=== PATIENT | female | born 2000 | race Caucasian/White ===

== ENCOUNTER 2020-06-05 11:20 | Inpatient (IN) ==
--- NOTE | 2020-06-05 12:14 | Emergency Department Note ---
Impression & Plan Depression with suicidal ideation, Contusion of lower leg, right, Self-harming behavior, Self-inflicted laceration of left wrist ED Provider Note Provider: Jeanmarie Huynh MD DATE OF SERVICE:06/05/2020 CHIEF COMPLAINT: Depression, suicidal thoughts, self-harm HISTORY OF PRESENT ILLNESS: Patient is a 18-year-old female history of depression anxiety and distant self-harm presenting here today stating that stating that over the past week or so she is had worsening anxiety and depression. Now with some more prevalent thoughts of suicide but no plan. Patient states she is recently begun self-harm again with some superficial lacerations of her left wrist and some bruising from punching her right lower leg. Denies taking any medications or actually attempting to want to kill herself at this point. Patient states she is difficulty interfacing with her therapist in the outpatient setting. Patient states this may be related to recent diagnosis of cancer in one of her friends at home in [place]. Patient states she has been trying to abstain from alcohol recently as this makes things worse. Denies a history of inpatient psychiatric care. Patient states he is not sleeping well and has lack of energy. REVIEW OF SYSTEMS: A total of 10 review of systems was obtained and negative except as stated above in the HPI. PAST MEDICAL HISTORY: As noted above MEDICATIONS: Reviewed home medications with the patient SOCIAL HISTORY: [employer] student, occasional alcohol, denies illicit drug use PHYSICAL EXAM: GENERAL: alert and oriented in no acute distress on stretcher Head: normocephalic and atraumatic EYES: No injection, discharge or icterus. NECK: Trachea midline. LUNGS: Airway patent. No retractions. Breath sounds clear HEART: Regular rate and rhythm. No chest wall tenderness ABDOMEN: Soft and non-tender, without guarding or rebound. SKIN: Acyanotic, warm, dry EXTREMITIES: Without swelling, tenderness or deformity except for some proud healed scars on the right forearm and wrist and some newer about 1 cm for linear striations of the left wrist superficial nature without active bleeding. No significant rounding erythema. Intact strength of the left hand. Neuro intact in the bilateral hands. Does have some bruising and contusion over the right lateral mid calf without any laceration. No obvious deformity. Soft. NEUROLOGICAL: No focal deficits. No aphasia. No facial droop or slurred speech. Normal strength and tone in the extremities. Sensation to gross touch normal. Psych: States severe depression some anxiety with suicidal thoughts. States she has had some new self-harm but denies any homicidal ideation or hallucinations. Normal affect. Patient's laboratory studies and imaging reviewed. Differential includes Mood disorder, infection, hypoglycemia, electrolyte abnormalities, cardiac sources, intracerebral event, toxicologic, trauma, neurologic, as well as other pathologies. IMPRESSION/MEDICAL DECISION MAKING: Patient presents with anxiety depression now with recurrent self-harm requesting inpatient treatment. Patient has suicidal thoughts but no plan and no furtherance. Basic medical labs were obtained. Very superficial injuries to the left arm not requiring suturing and no evidence of tendon or neurovascular compromise. Some superficial contusions to right lower leg but do not believe he need x-rays or additional imaging here. Basic labs were without significant abnormality here. Rapid Covid testing was sent and a screening to facilitate mental health placement. This was negative. Seen in conjunction with ps ychiatric showcase [facility]. Patient requesting inpatient treatment and I believe this is reasonable given her worsening depression and now with recurrence of self-harm given escalation. Bed search initiated and patient was accepted 3 S. for further inpatient treatment of her depression with suicidal ideation. DIAGNOSIS: Depression with suicidal ideation, right leg bruising, left arm superficial lac eration secondary to intentional self-harm DISPOSITION: Admitted to 3 S. Past Med/Surg History Medical History (Updated 06/05/20 @ 16:35 by Jeanmarie Huynh M.D.) Anxiety Asthma stable Depression Dysmenorrhea History of anemia Inappropriate sinus tachycardia occasional palpitations/being monitored by cardiology Menorrhagia Pelvic cramping Surgical History S/P tonsillectomy S/P wisdom tooth extraction Family History Grandmother (Maternal) Family history of diabetes mellitus Grandfather (Maternal) Family history of diabetes mellitus Other No pertinent family history Social History Smoking Status: Never smoker Second Hand Exposure: Yes (as a child); Hx Alcohol Use: Yes Alcohol type: beer, wine and hard liquor Hx Substance Use: No Preferred Language: Greenlandic Communication Ability: Effective 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 Beliefs That Will Affect Care: None Current Living Situation: Other Current Living Situation Comment: roommate Feels Safe at Home: Yes Assistive Devices: Glasses Allergies Allergies Allergy/AdvReac Type Severity Reaction Status Date / Time latex Allergy Mild Rash Verified 06/05/20 12:12 No Known Drug Allergies Allergy Unknown Verified 06/05/20 12:12 Home Meds Home Medications Medication Instructions Recorded Confirmed cetirizine 10 mg PO DAILY 06/05/20 06/05/20 norethindrone (contraceptive) 0.35 mg PO DAILY 06/05/20 06/05/20 rizatriptan 10 mg PO Q2H PRN 06/05/20 06/05/20 topiramate 25 mg PO BID 06/05/20 06/05/20 venlafaxine 75 mg PO QAM 06/05/20 06/05/20 Results & Data (ED) Vital Signs Vital Signs - 24 hr 06/05/20 11:35 06/05/20 13:19 Temperature 36.9 C Temperature Source Oral Pulse Rate 108 H Pulse Rate [Right Finger] 96 H Pulse Rhythm Regular Pulse Rhythm [Right Finger] Regular Pulse Strength Normal Pulse Strength [Right Finger] Normal Respiratory Rate 16 20 Respiratory Effort / Characteristics Non-Labored Spontaneous Non-Labored Spontaneous Respiratory Depth Normal Normal Respiratory Pattern Regular Regular Blood Pressure 149/111 H Blood Pressure [Left Arm] 127/96 Blood Pressure Mean 123 Blood Pressure Mean [Left Arm] 106 Blood Pressure Position Sitting Pulse Oximetry 98 99 Oxygen Delivery Method Room Air Room Air Sepsis Recent Fever Within 48 Hours No Sepsis New/Unexplained Change in Mental Status N/A Sepsis Action Taken by Nursing No Action Required Laboratory Data Result diagrams: 06/05/20 13:23 06/05/20 13:22 Lab Results 06/05/20 06/05/20 06/05/20 Range/Units 11:36 11:36 11:36 WBC (4.8-10.8) K/uL RBC (4.2-5.4) M/uL Hgb (12.0-16.0) g/dL Hct (37-47) % MCV (80-100) fL MCH (25-34) pg MCHC (32-36) g/dL RDW Std Deviation (36.4-46.3) fL RDW Coeff of Rae (11.5-14.5) % Plt Count (130-400) K/uL MPV (7.4-10.4) fL Immature Gran % (Auto) % Neut % (Auto) % Lymph % (Auto) % [place] % (Auto) % Eos % (Auto) % Baso % (Auto) % Neut # (Auto) (1.4-6.5) K/uL Lymph # (Auto) (1.2-3.4) K/uL [place] # (Auto) (0.11-0.59) K/uL Eos # (Auto) (0-0.5) K/uL Baso # (Auto) (0-0.2) K/uL Immature Gran # (Auto) (0.00-0.02) K/uL Platelet Estimate (Normal) Sodium (136-145) mmol/L Potassium (3.5-5.1) mmol/L Chloride (98-107) mmol/L Carbon Dioxide (21-32) mmol/L Anion Gap (3-11) BUN (7-18) mg/dl Creatinine (0.6-1.2) mg/dl Est Cr Clr Drug Dosing ml/min Est GFR ( Amer) Est GFR (Non-Af Amer) BUN/Creatinine Ratio (10-20) Glucose (70-99) mg/dl Calcium (8.5-10.1) mg/dl Total Bilirubin (0.2-1) mg/dl AST (15-37) U/L ALT (12-78) U/L Alkaline Phosphatase (45-117) U/L Total Protein (6.4-8.2) gm/dl Albumin (3.4-5.0) gm/dl Globulin (2.5-4.0) gm/dl Albumin/Globulin Ratio (0.9-2) TSH (0.300-4.500) uIu/ml Urine Color Dark Yellow Urine Appearance Clear (Clear) Urine pH >= 9.0 H (4.5-7.5) Ur Specific [place] 1.027 (1.000-1.030) Urine Protein Negative (Negative) Urine Glucose (UA) Negative (Negative) Urine Ketones Trace H (Negative) Urine Blood Negative (Negative) Urine Nitrite Negative (Negative) Urine Bilirubin Negative (Negative) Urine Urobilinogen Negative (Negative) Ur Leukocyte Esterase Negative (Negative) POC Ur Test NEG (NEG) Salicylates (2.8-20) mg/dl Urine Opiates Screen Neg (Neg) Ur Methadone, Qual Neg (Neg) Acetaminophen (10-30) ug/ml Urine Barbiturates Neg (Neg) Ur Phencyclidine (PCP) Neg (Neg) U Amphetamin/Meth Scrn Neg (Neg) MDMA (Ecstasy) Screen Neg (Neg) U Benzodiazepines Scrn Neg (Neg) Ur Cocaine Metabolite Neg (Neg) U Marijuana (THC) Screen Neg (Neg) Ethyl Alcohol mg/dL (0-3) mg/dl COVID-19 Eval Order SARS-CoV-2, RNA, NAAT (NEGATIVE) 06/05/20 06/05/20 06/05/20 Range/Units 13:22 13:22 13:22 WBC (4.8-10.8) K/uL RBC (4.2-5.4) M/uL Hgb (12.0-16.0) g/dL Hct (37-47) % MCV (80-100) fL MCH (25-34) pg MCHC (32-36) g/dL RDW Std Deviation (36.4-46.3) fL RDW Coeff of Rae (11.5-14.5) % Plt Count (130-400) K/uL MPV (7.4-10.4) fL Immature Gran % (Auto) % Neut % (Auto) % Lymph % (Auto) % [place] % (Auto) % Eos % (Auto) % Baso % (Auto) % Neut # (Auto) (1.4-6.5) K/uL Lymph # (Auto) (1.2-3.4) K/uL [place] # (Auto) (0.11-0.59) K/uL Eos # (Auto) (0-0.5) K/uL Baso # (Auto) (0-0.2) K/uL Immature Gran # (Auto) (0.00-0.02) K/uL Platelet Estimate (Normal) Sodium 137 (136-145) mmol/L Potassium 3.8 (3.5-5.1) mmol/L Chloride 108 H (98-107) mmol/L Carbon Dioxide 24 (21-32) mmol/L Anion Gap 5.0 (3-11) BUN 10 (7-18) mg/dl Creatinine 0.91 (0.6-1.2) mg/dl Est Cr Clr Drug Dosing 92.5 ml/min Est GFR ( Amer) 104.5 Est GFR (Non-Af Amer) 90.2 BUN/Creatinine Ratio 10.6 (10-20) Glucose 79 (70-99) mg/dl Calcium 9.3 (8.5-10.1) mg/dl Total Bilirubin 0.7 (0.2-1) mg/dl AST 21 (15-37) U/L ALT 43 (12-78) U/L Alkaline Phosphatase 74 (45-117) U/L Total Protein 7.8 (6.4-8.2) gm/dl Albumin 3.9 (3.4-5.0) gm/dl Globulin 3.9 (2.5-4.0) gm/dl Albumin/Globulin Ratio 1.0 (0.9-2) TSH 0.917 (0.300-4.500) uIu/ml Urine Color Urine Appearance (Clear) Urine pH (4.5-7.5) Ur Specific [place] (1.000-1.030) Urine Protein (Negative) Urine Glucose (UA) (Negative) Urine Ketones (Negative) Urine Blood (Negative) Urine Nitrite (Negative) Urine Bilirubin (Negative) Urine Urobilinogen (Negative) Ur Leukocyte Esterase (Negative) POC Ur Test (NEG) Salicylates < 1.7 L (2.8-20) mg/dl Urine Opiates Screen (Neg) Ur Methadone, Qual (Neg) Acetaminophen < 2 L (10-30) ug/ml Urine Barbiturates (Neg) Ur Phencyclidine (PCP) (Neg) U Amphetamin/Meth Scrn (Neg) MDMA (Ecstasy) Screen (Neg) U Benzodiazepines Scrn (Neg) Ur Cocaine Metabolite (Neg) U Marijuana (THC) Screen (Neg) Ethyl Alcohol mg/dL < 3.0 (0-3) mg/dl COVID-19 Eval Order SARS-CoV-2, RNA, NAAT (NEGATIVE) 06/05/20 06/05/20 06/05/20 Range/Units 13:23 15:58 15:58 WBC 7.16 (4.8-10.8) K/uL RBC 4.60 (4.2-5.4) M/uL Hgb 15.0 (12.0-16.0) g/dL Hct 43.4 (37-47) % MCV 94.3 (80-100) fL MCH 32.6 (25-34) pg MCHC 34.6 (32-36) g/dL RDW Std Deviation 42.0 (36.4-46.3) fL RDW Coeff of Rae 12.2 (11.5-14.5) % Plt Count 236 (130-400) K/uL MPV 9.6 (7.4-10.4) fL Immature Gran % (Auto) 0.3 % Neut % (Auto) 66.5 % Lymph % (Auto) 22.5 % [place] % (Auto) 6.6 % Eos % (Auto) 3.8 % Baso % (Auto) 0.3 % Neut # (Auto) 4.77 (1.4-6.5) K/uL Lymph # (Auto) 1.61 (1.2-3.4) K/uL [place] # (Auto) 0.47 (0.11-0.59) K/uL Eos # (Auto) 0.27 (0-0.5) K/uL Baso # (Auto) 0.02 (0-0.2) K/uL Immature Gran # (Auto) 0.02 (0.00-0.02) K/uL Platelet Estimate Normal (Normal) Sodium (136-145) mmol/L Potassium (3.5-5.1) mmol/L Chloride (98-107) mmol/L Carbon Dioxide (21-32) mmol/L Anion Gap (3-11) BUN (7-18) mg/dl Creatinine (0.6-1.2) mg/dl Est Cr Clr Drug Dosing ml/min Est GFR ( Amer) Est GFR (Non-Af Amer) BUN/Creatinine Ratio (10-20) Glucose (70-99) mg/dl Calcium (8.5-10.1) mg/dl Total Bilirubin (0.2-1) mg/dl AST (15-37) U/L ALT (12-78) U/L Alkaline Phosphatase (45-117) U/L Total Protein (6.4-8.2) gm/dl Albumin (3.4-5.0) gm/dl Globulin (2.5-4.0) gm/dl Albumin/Globulin Ratio (0.9-2) TSH (0.300-4.500) uIu/ml Urine Color Urine Appearance (Clear) Urine pH (4.5-7.5) Ur Specific [place] (1.000-1.030) Urine Protein (Negative) Urine Glucose (UA) (Negative) Urine Ketones (Negative) Urine Blood (Negative) Urine Nitrite (Negative) Urine Bilirubin (Negative) Urine Urobilinogen (Negative) Ur Leukocyte Esterase (Negative) POC Ur Test (NEG) Salicylates (2.8-20) mg/dl Urine Opiates Screen (Neg) Ur Methadone, Qual (Neg) Acetaminophen (10-30) ug/ml Urine Barbiturates (Neg) Ur Phencyclidine (PCP) (Neg) U Amphetamin/Meth Scrn (Neg) MDMA (Ecstasy) Screen (Neg) U Benzodiazepines Scrn (Neg) Ur Cocaine Metabolite (Neg) U Marijuana (THC) Screen (Neg) Ethyl Alcohol mg/dL (0-3) mg/dl COVID-19 Eval [facility] SARS-[facility]-2, RNA, NAAT NEGATIVE (NEGATIVE) Discharge Plan Visit Data Chief Complaint: Mental Health Evaluation Stated Complaint: MENTAL HEALTH EVALUTION ED Provider: Jeanmarie Huynh Discharge Problem: Depression with suicidal ideation, Contusion of lower leg, right, Self-harming behavior, Self-inflicted laceration of left wrist Patient Disposition: Transfer Behavioral Health Fac Forms Stand Alone Forms: My [facility], Suicide Prevention Resources Prescriptions Prescriptions: No Action venlafaxine 75 mg Capsule,Extended Release 24hr 75 mg PO QAM RF: 0 cetirizine 10 mg Tablet 10 mg PO DAILY RF: 0 topiramate 25 mg tablet 25 mg PO BID RF: 0 rizatriptan 10 mg tablet,disintegrating 10 mg PO Q2H PRN (Reason: Migraine Headache) RF: 0 norethindrone (contraceptive) 0.35 mg Tablet 0.35 mg PO DAILY RF: 0 Referrals Referrals: [facility] [Primary Care Provider] - Discharge Problem: Contusion of lower leg, right Qualifiers: Encounter type: initial encounter Qualified Code(s): S80.11XA - Contusion of right lower leg, initial encounter
[2020-06-05 12:33] LABS: Appearance Urine Clear (Clear); Bilirubin Urine Negative (Negative); Blood Urine Negative (Negative); Color Urine Dark Yellow; Glucose Urine UA Negative (Negative); Ketones Urine Trace (Negative); Leukocyte Esterase Urine Negative (Negative); Nitrite Urine Negative (Negative); Protein Urine Negative (Negative); Specific Gravity Urine 1.027 (1.000-1.030); Urobilinogen Urine Negative (Negative); pH Urine >= 9.0 (4.5-7.5)
[2020-06-05 13:27] LABS: Amphetamines+Metham, Urine Neg (Neg); Barbiturates, Urine Neg (Neg); Benzodiazepine, Urine Neg (Neg); Cocaine, Urine Neg (Neg); MDMA (Ecstacy), Urine Neg (Neg); Methadone, Urine Neg (Neg); Opiate, Urine Neg (Neg); Phencyclidine, Urine Neg (Neg)
[2020-06-05 13:37] VITALS: O2SAT 99
[2020-06-05 13:51] LABS: Albumin Level 3.9 gm/dl (3.4-5.0); BUN Creatinine Ratio 10.6 (10-20); Calcium 9.3 mg/dl (8.5-10.1); Creatinine Clr Calc Pharmacy 92.5 ml/min; Est GFR (African American) 104.5; Est GFR (Non-African American) 90.2; Potassium 3.8 mmol/L (3.5-5.1)
[2020-06-05 14:01] LABS: Bilirubin,Total 0.7 mg/dl (0.2-1); Globulin 3.9 gm/dl (2.5-4.0); Thyroid Stimulating Hormone 0.917 uIu/ml (0.300-4.500); Total Protein 7.8 gm/dl (6.4-8.2)
[2020-06-05 14:12] LABS: Basophils # (auto) 0.02 K/uL (0-0.2); Basophils % (auto) 0.3 %; Eosinophils # (auto) 0.27 K/uL (0-0.5); Eosinophils % (auto) 3.8 %; Hematocrit (blood only) 43.4 % (37-47); Immature Granulocytes # (auto) 0.02 K/uL (0.00-0.02); Immature Granulocytes % (auto) 0.3 %; Lymphocytes # (auto) 1.61 K/uL (1.2-3.4); Lymphocytes % (auto) 22.5 %; Mean Corpuscular Hemoglobin 32.6 pg (25-34); Mean Corpuscular Hgb Conc 34.6 g/dL (32-36); Mean Corpuscular Volume 94.3 fL (80-100); Mean Platelet Volume 9.6 fL (7.4-10.4); Monocytes # (auto) 0.47 K/uL (0.11-0.59); Monocytes % (auto) 6.6 %; Neutrophils # (auto) 4.77 K/uL (1.4-6.5); Neutrophils % (auto) 66.5 %; Platelet Count 236 K/uL (130-400); Platelet Estimate Normal (Normal); RDW Coefficient of Variation 12.2 % (11.5-14.5); White Blood Count 7.16 K/uL (4.8-10.8)
[2020-06-05 14:13] LABS: Acetaminophen < 2 ug/ml (10-30); Salicylate < 1.7 mg/dl (2.8-20)
[2020-06-05] MEDS ORDERED: ALUMINUM/MAGNESIUM SUSP 30 ML UDC PO PRN (16:26)
[2020-06-05] MEDS ORDERED: hydrOXYzine HCl 25 MG TAB PO PRN (16:26)
[2020-06-05] MEDS ORDERED: MAGNESIUM HYDROXIDE SUSP 30 ML UDC PO PRN (16:26)
[2020-06-05] MEDS ORDERED: SODIUM CHLORIDE 0.65% NA SOLN 45 ML (OCEAN) PRN (16:26)
[2020-06-05] MEDS ORDERED: BISMUTH SUBSALICYLATE LIQD 236 ML PO PRN (16:26)
[2020-06-05] MEDS ORDERED: RIZATRIPTAN BENZOATE 10 MG TAB PO PRN (16:31)
[2020-06-05] MEDS: TOPIRAMATE 25 MG TAB PO SCH (21:03)
[2020-06-05] MEDS: ACETAMINOPHEN 325 MG TAB PO PRN (21:03)
[2020-06-05] MEDS: hydrOXYzine HCl 25 MG TAB PO PRN (22:02)
[2020-06-06] MEDS: CETIRIZINE HCL 10 MG TABLET PO SCH (08:49)
[2020-06-06] MEDS: VENLAFAXINE HCL XR 75 MG CAPXR PO SCH (08:49)
[2020-06-06] MEDS: PATIENT'S OWN ORAL CONTRACEPTIVE PO SCH (08:50)
[2020-06-06] MEDS: TOPIRAMATE 25 MG TAB PO SCH ×2 (08:50→20:55)
[2020-06-06] MEDS ORDERED: NORETHINDRONE 5 MG TAB PO SCH (09:00)
[2020-06-06] MEDS: ACETAMINOPHEN 325 MG TAB PO PRN ×2 (09:18→15:41)
--- NOTE | 2020-06-06 10:55 | History & Physical ---
Date of Service June 06, 2020 Impression / Recommendations Impression 19 y/o F [employer] student from [place] with long standing depression, anxiety, and cluster B traits vs hypomanic symptoms who presents with increased mood lability and feeling out of control with her emotions, with self injury by cutting and suicidal thoughts. She has been on venlafaxine XR off and on for the past 1.5 years, most recently resumed about 6 months ago, and just increased to 75mg daily about 2 weeks ago. She recently started therapy, and will need a family meeting/exploration of supports and referral for psychiatry. Inpatient treatment is medically necessary due to severity of symptoms and risk for self harm if discharged. (1) Depression: 06/06 - Differential includes MDD, bipolar II (although per her report periods of elevated mood do not last long enough to qualify as hypomanic episodes), and borderline PD. Reviewed these with patient, discussed need to get collateral information to help clarify diagnosis, and plan to treat based on targeting problematic symptoms in the meantime. -Discussed option of titrating venlafaxine XR further and/or addition of a mood stabilizer. Specifically discussed lamotrigine, given favorable side effect profile when compared to lithium or an atypical antipsychotic, and reviewed risks, benefits, and side effects, including SJS and need to follow standard dose titration schedule to minimize this risk. Provided her with an UpToDate handout about the medication and she would like to read it and think about it, will continue to provide education as needed. -Encourage group attendance and participation, work on healthy coping skills and discharge safety plan. -Family meeting with ? or roommate, vs other family. -Coordinate with outpatient therapist, and refer for psychiatric care. Depression Type: unspecified Qualified Code(s): F32.9 - Major depressive disorder, single episode, unspecified Present on Admission?: Yes (2) Cluster B personality disorder: 06/06 - Chronic SI, SIB by cutting, and chronic mood instability with marked reactivity of mood. Continue to explore, provide psychoeducation Present on Admission?: Yes Risk Factors Assessment Male: No : Yes Do You Have Access To A Gun?: No Health Problems: Yes Mental Health Diagnoses: Yes Substance Use Disorders: No Previous Attempt: Yes Previous Attempt; Didn't Tell Anyone: Yes Family History of Suicide: Yes Previous Psychiatric Hospitalization: No Hopelessness: No Smoker: No Protective Factors Assessment : Yes Responsible for Young Children: No Employed: Yes ([employer]/t) Stable Relationships: Yes Supportive Family: No Psychiatric History Identifying Data TEENA MURPHY is a 19-year-old F [employer] student, has a history of depression, and was admitted on 06/05/20 16:26 on a 201 voluntary commitment for suicidal ideation and inability to contract for safety outside the hospital. Chief Complaint "Just out of control". History of Present Illness Patient presented to the ER reporting worsening depression and a wish to be . She was unable to contract for safety outside the hospital. Admission labs were normal, and she signed in voluntarily for hospitalization. On my assessment, patient reports she has been feeling increasingly out of control, overwhelmed, with intense emotions. She had been diagnosed with depression in high school, but didn't take medication as "my mom doesn't really believe in it," and did not get treatment until her freshman year of college, when she started escitalopram, then sertraline the following year, and venlafaxine XR was started about a year and a half ago, although she went off it for about 6 months as she didn't have insurance, and resumed it 6-7 months ago, and her dose was increased about 2 months ago, initially seemed to help, but then stopped. She has never been on higher doses. She reports mood is "down, depressed, hopeless, tired all the time, can't think well, thoughts aren't in a line, can't do my schoolwork" for > 1 month. She is "able to be happy, but don't really feel it to my core." Sleep is disrupted, can't sleep at night but then naps "all day." Appetite is poor but has gained weight. Reports SI and "I'd be better off ." Reports multiple stressors including that her moved cross country () at the beginning of the month, and her best friend was diagnosed with cancer. She reports periods of elevated mood lasting a couple hours to a couple of days, where she feels "really good about myself, want to change and be a better person," makes a lot of lists of things she wants to do, but doesn't follow through. Endorses rapid and excessive speech. Denies increase in pleasure seeking behavior or decreased need for sleep, states she is "always tired." She also reports anxiety with worry, rumination, feeling on edge, and reports these are life long symptoms. Started cutting age 13, had not cut for a year until a couple of weeks ago, and then cut twice. Does it when feels out of control, as gives her a sense of control. Uses a pocket knife or razor to cut, usually on thighs, but now on arms. Thinks triggered by going home a couple of weeks ago, and sister was self harming, "I found harm." Denies recent panic attacks, but has had them in the past. Denies psychosis, OCD, PTSD, eating disorder. States her therapist told her she had ADHD based on a "quiz" she took, but she feels depressive symptoms are the main issue. Eduarda by avoidance. Past Psychiatric History Previous Psych History: Therapy in for about 6 months, didn't like therapist. Thinks she was in therapy in elementary school when her father , but poor recall. Current Psychiatric Diagnosis: Depression and Anxiety Outpatient Services: Dr. Lay Beebe at [facility] prescribes antidepressant. Started therapy with Tsering Granados about a month ago. Previous Psych Admissions: Denies Do You Have Access To A Gun?: No History of Previous Suicide Attempt: Yes Describe Attempts in the Past: Overdose on "a whole bottle of Benadryl" 5 years ago, vomited, no tx Past Medication Trials: escitalopram - ineffective, not sure of dose, "think it was lower" sertraline - excessive sleep, doesn't recall dose Additional Notes: Didn't tell anyone about her suicide attempt. Allergies Allergy/AdvReac Type Severity Reaction Status Date / Time latex Allergy Mild Rash Verified 06/05/20 12:12 No Known Drug Allergies Allergy Unknown Verified 06/05/20 12:12 Home Medications Home Medications Medication Instructions Recorded Confirmed Type cetirizine 10 mg PO DAILY 06/05/20 06/05/20 History norethindrone (contraceptive) 0.35 mg PO DAILY 06/05/20 06/05/20 History rizatriptan 10 mg PO Q2H PRN 06/05/20 06/05/20 History topiramate 25 mg PO BID 06/05/20 06/05/20 History venlafaxine 75 mg PO QAM 06/05/20 06/05/20 History Family History Family History of: Depression, Anxiety and Suicide Completion ("a distant relative," great uncle) Family Mental Health History Comment: "Most of my relatives are diagnosed with depression and anxiety." Denies family h/o bipolar. Alcohol History Hx of Alcohol Use Over the Past 12 Months: Yes ("A few times weekly") AUDIT Total Score: 4 Smoking Use Have You Smoked or Used Tobacco Products in the Last 30 Days: No Smoking Status: Never smoker Substance History Hx of Prescription Med Misuse Over the Past 12 Months: No Hx of Over the Counter Med Misuse Over the Past 12 Months: No Hx of Inhalent Misuse Over the Past 12 Months: No Hx of Organic Substance Use Over the Past 12 Months: No Hx of Illegal Substances/Street Drug Use Over Past 12 Months: No Problems as a Result of Past Substance Use: None Identified Personal History Living Arrangements: Apartment Living Arrangements Comments: in [place] with a roommate who is her best friend, also from [place]. Childhood: From [place]. Mother, step father and sister still in [place]. Highest Grade Completed: Some College Highest Grade Completed Comment: [employer] senior Employment Status: Student Marital Status: Number Of Children: 0 Beliefs That Will Affect Care: None Current Legal Problems: No Hx Legal Problems: No Hx Traumatic Life Events: Yes Psychological Trauma History Comment: father accidental OD when patient was 9 yrs old, step mother by suicide when patient was 12 yrs old Patient History Medical History (Updated 06/06/20 @ 12:20 by Fior Salinas MD) Anxiety Asthma stable Cluster B personality disorder Depression Dysmenorrhea History of anemia Inappropriate sinus tachycardia occasional palpitations/being monitored by cardiology Menorrhagia Pelvic cramping Surgical History S/P tonsillectomy S/P wisdom tooth extraction Family History Grandmother (Maternal) Family history of diabetes mellitus Grandfather (Maternal) Family history of diabetes mellitus Other No pertinent family history Social History Smoking Status: Never smoker Second Hand Exposure: Yes (as a child); Hx Alcohol Use: Yes Alcohol type: beer, wine and hard liquor Hx Substance Use: No Preferred Language: Nepali Communication Ability: Effective House Decorator Required: No Beliefs That Will Affect Care: None Current Living Situation: Other Current Living Situation Comment: roommate Feels Safe at Home: Yes Assistive Devices: Glasses Review of Systems Review of Systems: All systems reviewed & are unremarkable except as noted in Subjective Physical Exam Psychiatric: Orientation: alert and cooperative Apperance: appropriately dressed Wearing all black, stretch pants and shorts on top, black sweatshirt, hair cut short, nose piercing. Seated in NAD. Superficial lacerations to left wrist and right forearm. Eye Contact: + fair eye contact Motor Behavior: steady gait and station and + psychomotor agitation (bouncing leg up and down) Speech: normal rate/rhythm/volume of speech Affect: + depressed affect, + anxious affect, + tearful affect, + constricted affect and mood congruent with affect Mood: + depressed mood and + anxious mood Thought Process: goal directed thought process Thought Content: reality based without delusions, + hopelessness and + worthlessness Suicidal Thoughts: + reports suicidal thoughts Homicidal Thoughts: denies homicidal thoughts Hallucinations: no auditory hallucinations and no visual hallucinations Cognition: recent memory grossly intact, attention grossly intact and language grossly intact Estimated Intelligence: consistent with education level Insight: + fair insight Judgement: + fair judgement Vital Signs (Past 24 Hours): Last Vital Signs Temp 36.7 C 06/06/20 06:30 Pulse 83 06/06/20 06:31 Resp 16 06/06/20 06:30 BP 128/90 06/06/20 06:31 Pulse Ox 99 06/05/20 17:30 Exam Statement: A physical exam was performed in the ER prior to admission to the unit by Dr. Jeanmarie Huynh. I accept that physical as correct/medical clearance for the inpatient physical exam. Results & Data ([facility]) Laboratory Results Laboratory Results - last 24 hr 06/05/20 06/05/20 06/05/20 11:36 11:36 11:36 WBC RBC Hgb Hct MCV MCH MCHC RDW Std Deviation RDW Coeff of Rae Plt Count MPV Immature Gran % (Auto) Neut % (Auto) Lymph % (Auto) [place] % (Auto) Eos % (Auto) Baso % (Auto) Neut # (Auto) Lymph # (Auto) [place] # (Auto) Eos # (Auto) Baso # (Auto) Immature Gran # (Auto) Platelet Estimate Sodium Potassium Chloride Carbon Dioxide Anion Gap BUN Creatinine Est Cr Clr Drug Dosing Est GFR ( Amer) Est GFR (Non-Af Amer) BUN/Creatinine Ratio Glucose Calcium Total Bilirubin AST ALT Alkaline Phosphatase Total Protein Albumin Globulin Albumin/Globulin Ratio TSH Urine Color Dark Yellow Urine Appearance Clear Urine pH >= 9.0 H Ur Specific [place] 1.027 Urine Protein Negative Urine Glucose (UA) Negative Urine Ketones Trace H Urine Blood Negative Urine Nitrite Negative Urine Bilirubin Negative Urine Urobilinogen Negative Ur Leukocyte Esterase Negative POC Ur Test NEG Salicylates Urine Opiates Screen Neg Ur Methadone, Qual Neg Acetaminophen Urine Barbiturates Neg Ur Phencyclidine (PCP) Neg U Amphetamin/Meth Scrn Neg MDMA (Ecstasy) Screen Neg U Benzodiazepines Scrn Neg Ur Cocaine Metabolite Neg U Marijuana (THC) Screen Neg Ethyl Alcohol mg/dL COVID-19 Eval Order SARS-CoV-2, RNA, NAAT 06/05/20 06/05/20 06/05/20 13:22 13:22 13:22 WBC RBC Hgb Hct MCV MCH MCHC RDW Std Deviation RDW Coeff of Rae Plt Count MPV Immature Gran % (Auto) Neut % (Auto) Lymph % (Auto) [place] % (Auto) Eos % (Auto) Baso % (Auto) Neut # (Auto) Lymph # (Auto) [place] # (Auto) Eos # (Auto) Baso # (Auto) Immature Gran # (Auto) Platelet Estimate Sodium 137 Potassium 3.8 Chloride 108 H Carbon Dioxide 24 Anion Gap 5.0 BUN 10 Creatinine 0.91 Est Cr Clr Drug Dosing 92.5 Est GFR ( Amer) 104.5 Est GFR (Non-Af Amer) 90.2 BUN/Creatinine Ratio 10.6 Glucose 79 Calcium 9.3 Total Bilirubin 0.7 AST 21 ALT 43 Alkaline Phosphatase 74 Total Protein 7.8 Albumin 3.9 Globulin 3.9 Albumin/Globulin Ratio 1.0 TSH 0.917 Urine Color Urine Appearance Urine pH Ur Specific [place] Urine Protein Urine Glucose (UA) Urine Ketones Urine Blood Urine Nitrite Urine Bilirubin Urine Urobilinogen Ur Leukocyte Esterase POC Ur Test Salicylates < 1.7 L Urine Opiates Screen Ur Methadone, Qual Acetaminophen < 2 L Urine Barbiturates Ur Phencyclidine (PCP) U Amphetamin/Meth Scrn MDMA (Ecstasy) Screen U Benzodiazepines Scrn Ur Cocaine Metabolite U Marijuana (THC) Screen Ethyl Alcohol mg/dL < 3.0 COVID-19 Eval Order SARS-CoV-2, RNA, NAAT 06/05/20 06/05/20 06/05/20 13:23 15:58 15:58 WBC 7.16 RBC 4.60 Hgb 15.0 Hct 43.4 MCV 94.3 MCH 32.6 MCHC 34.6 RDW Std Deviation 42.0 RDW Coeff of Rae 12.2 Plt Count 236 MPV 9.6 Immature Gran % (Auto) 0.3 Neut % (Auto) 66.5 Lymph % (Auto) 22.5 [place] % (Auto) 6.6 Eos % (Auto) 3.8 Baso % (Auto) 0.3 Neut # (Auto) 4.77 Lymph # (Auto) 1.61 [place] # (Auto) 0.47 Eos # (Auto) 0.27 Baso # (Auto) 0.02 Immature Gran # (Auto) 0.02 Platelet Estimate Normal Sodium Potassium Chloride Carbon Dioxide Anion Gap BUN Creatinine Est Cr Clr Drug Dosing Est GFR ( Amer) Est GFR (Non-Af Amer) BUN/Creatinine Ratio Glucose Calcium Total Bilirubin AST ALT Alkaline Phosphatase Total Protein Albumin Globulin Albumin/Globulin Ratio TSH Urine Color Urine Appearance Urine pH Ur Specific [place] Urine Protein Urine Glucose (UA) Urine Ketones Urine Blood Urine Nitrite Urine Bilirubin Urine Urobilinogen Ur Leukocyte Esterase POC Ur Test Salicylates Urine Opiates Screen Ur Methadone, Qual Acetaminophen Urine Barbiturates Ur Phencyclidine (PCP) U Amphetamin/Meth Scrn MDMA (Ecstasy) Screen U Benzodiazepines Scrn Ur Cocaine Metabolite U Marijuana (THC) Screen Ethyl Alcohol mg/dL COVID-19 Eval [facility] SARS-CoV-2, RNA, NAAT NEGATIVE Current Inpatient Medications Current Inpatient Medications: Current Inpatient Medications Acetaminophen (Acetaminophen 325 Mg Tab) 650 mg PO Q4H PRN PRN Reason: Headache or Minor Fever Stop: 07/05/20 16:25 Last Admin: 06/06/20 09:18 Dose: 650 mg Documented by: Al Hydrox/Mg Hydrox/Simethicone (Aluminum/Magnesium Susp 30 Ml Udc) 30 ml PO Q4H PRN PRN Reason: GI Upset Stop: 07/05/20 16:25 Bismuth Subsalicylate (Bismuth Subsalicylate Liqd 236 Ml) 15 ml PO PRN PRN PRN Reason: Loose Stool Stop: 07/05/20 16:25 Cetirizine HCl (Cetirizine Hcl 10 Mg Tablet) 10 mg PO QAM DAX Stop: 07/06/20 08:59 Last Admin: 06/06/20 08:49 Dose: 10 mg Documented by: Hydroxyzine HCl (Hydroxyzine Hcl 25 Mg Tab) 50 mg PO HSZ PRN PRN Reason: Insomnia Stop: 07/05/20 16:25 Last Admin: 06/05/20 22:02 Dose: 50 mg Documented by: Hydroxyzine HCl (Hydroxyzine Hcl 25 Mg Tab) 25 mg PO Q4H PRN PRN Reason: Anxiety Stop: 07/05/20 16:25 Magnesium Hydroxide (Magnesium Hydroxide Susp 30 Ml Udc) 30 ml PO DAILY PRN PRN Reason: Constipation Stop: 07/05/20 16:25 Miscellaneous (Patient's Own Oral Contraceptive) 1 ea PO QAM DAX Stop: 07/06/20 08:59 Last Admin: 06/06/20 08:50 Dose: 1 ea Documented by: Rizatriptan Benzoate (Rizatriptan Benzoate 10 Mg Tab) 10 mg PO Q2H PRN PRN Reason: Migraine Headache Stop: 07/05/20 16:30 Sodium Chloride (Sodium Chloride 0.65% Na Soln 45 Ml ([place])) 1 - 2 sprays NA PRN PRN PRN Reason: Nasal Dryness/Congestion Stop: 07/05/20 16:25 Topiramate (Topiramate 25 Mg Tab) 25 mg PO BID DAX Stop: 07/05/20 20:59 Last Admin: 06/06/20 08:50 Dose: 25 mg Documented by: Venlafaxine HCl (Venlafaxine Hcl Xr 75 Mg Capxr) 75 mg PO QAM DAX Stop: 07/06/20 08:59 Last Admin: 06/06/20 08:49 Dose: 75 mg Documented by:
[2020-06-06] MEDS: hydrOXYzine HCl 25 MG TAB PO PRN (21:58)
[2020-06-07] MEDS: VENLAFAXINE HCL XR 75 MG CAPXR PO SCH (08:28)
[2020-06-07] MEDS: TOPIRAMATE 25 MG TAB PO SCH ×2 (08:29→21:01)
[2020-06-07] MEDS: CETIRIZINE HCL 10 MG TABLET PO SCH (08:29)
[2020-06-07] MEDS: PATIENT'S OWN ORAL CONTRACEPTIVE PO SCH (08:29)
--- NOTE | 2020-06-07 09:04 | Psychiatric Progress Note ---
Date of Service June 07, 2020 Impression / Recommendations Impression 19 y/o F [employer] student from [place] with long standing depression, anxiety, and cluster B traits vs hypomanic symptoms/bipolar II who presents with increased mood lability and feeling out of control with her emotions, with self injury by cutting and suicidal thoughts. She has been on venlafaxine XR off and on for the past 1.5 years, most recently resumed about 6 months ago, and just increased to 75mg daily about 2 weeks ago. She recently started therapy, and will need a family meeting/exploration of supports and referral for psychiatry. Inpatient treatment is medically necessary due to severity of symptoms and risk for self harm if discharged. (1) Depression: 06/06 - Differential includes MDD, bipolar II (although per her report periods of elevated mood do not last long enough to qualify as hypomanic episodes), and borderline PD. Reviewed these with patient, discussed need to get collateral information to help clarify diagnosis, and plan to treat based on targeting problematic symptoms in the meantime. -Discussed option of titrating venlafaxine XR further and/or addition of a mood stabilizer. Specifically discussed lamotrigine, given favorable side effect profile when compared to lithium or an atypical antipsychotic, and reviewed risks, benefits, and side effects, including SJS and need to follow standard dose titration schedule to minimize this risk. Provided her with an UpToDate handout about the medication and she would like to read it and think about it, will continue to provide education as needed. -Encourage group attendance and participation, work on healthy coping skills and discharge safety plan. -Family meeting with ? or roommate, vs other family. -Coordinate with outpatient therapist, and refer for psychiatric care. 06/07 -again reviewed information about lamotrigine, including the need to follow the standard dose titration schedule and potential side effects. Patient agreed to a trial, will follow the standard initiation schedule (25 mg daily X 2 weeks, 50 mg daily X 2 weeks, then 100 mg daily). Reviewed drug drug interactions, including that her norethindrone can reduce the lamotrigine level, so she may require a higher dose of lamotrigine. -Increase venlafaxine XR to 112.5 mg daily to target mood and anxiety. Reviewed risks including mood destabilization. -Patient is working on the patient workbook and her safety plan, continue to provide education and support. (2) Cluster B personality disorder: 06/06 - Chronic SI, SIB by cutting, and chronic mood instability with marked reactivity of mood. Continue to explore, provide psychoeducation (3) Dysmenorrhea: 06/07 -continue home dose of norethindrone, which patient states being used for menstrual cycle regulation. Reviewed drug drug interactions as above. Also reviewed that her topiramate can reduce norethindrone levels, which could lead to ineffective control. She is aware to use barrier protection. She has tried multiple other forms of contraception, including an IUD (too painful), NuvaRing, and only recently started norethindrone. Follow-up with [facility] as recommended. (4) Nasal congestion: -patient reporting nasal congestion, denies fever, productive cough, yellow/green sputum, headaches. Supportive treatment, including acetaminophen as needed, Afrin twice daily as needed, pseudoephedrine every 6 hours as needed. Warned about risk of increased anxiety, insomnia with decongestant. Risk Factors Assessment Male: No : Yes Do You Have Access To A Gun?: No Health Problems: Yes Mental Health Diagnoses: Yes Substance Use Disorders: No Previous Attempt: Yes Previous Attempt; Didn't Tell Anyone: Yes Family History of Suicide: Yes Previous Psychiatric Hospitalization: No Hopelessness: No Smoker: No Protective Factors Assessment : Yes Responsible for Young Children: No Employed: Yes ([employer] p/t) Stable Relationships: Yes Supportive Family: No Interval History Identifying Information TEENA MURPHY is a 19-year-old female [employer] student from [place], has a history of depression, and was admitted on 06/05/20 16:26 on a 201 voluntary commitment for suicidal ideation and inability to contract for safety outside the hospital. Chief Complaint "Pretty good". Review of Systems Notes nasal/sinus congestion, denies cough, sputum production, fever, headache, pain Sleep Information Total Hours of Sleep: 6.5 Sleep Comments: pt on q-15 minute checks Meal Information Percent Meal Consumed - Breakfast: 90 Percent Meal Consumed - Lunch: 100 Percent Meal Consumed - Dinner: 100 Subjective Subjective Patient was seen & assessed and interval progress reviewed with nursing and social work. Staff reports she has been attending and participating in groups, reporting improved mood, and met with the social sciences chair, but was unsure who she would like to schedule a family meeting with, her or her roommate/best friend. On my assessment, she reports mood is improving, groups are helping, states she was anxious to go to group therapy but found it very helpful. Distraction here is helping, feels more hopeful. Read the UTD information on lamotrigine and would like to try it, and would also like to increase venlafaxine as discussed to target anxiety. Sleep was disturbed with frequent awakening, vivid dreams, which is long standing. She denies SI and urges to cut here, and has not yet starting working on her safety plan. She has been working on her workbook, focusing on her triggers for self harm and things she can do to cope. She is willing for a family meeting, and referrals for outpatient psychiatry. Physical Exam Psychiatric Orientation: alert and cooperative Apperance: appropriately dressed, appropriately groomed and appeared stated age Eye Contact: + fair eye contact Motor Behavior: steady gait and station and + psychomotor agitation (Mild fidgeting) Speech: normal rate/rhythm/volume of speech Affect: + depressed affect, + anxious affect and mood congruent with affect "A little better." Thought Process: goal directed thought process Thought Content: reality based without delusions Suicidal Thoughts: denies suicidal thoughts Homicidal Thoughts: denies homicidal thoughts Hallucinations: no auditory hallucinations Cognition: recent memory grossly intact, attention grossly intact and language grossly intact Estimated Intelligence: average estimated intelligence Insight: + fair insight Judgement: + fair judgement Vital Signs (Past 24 Hours) Last Vital Signs Temp 36.7 C 06/07/20 06:35 Pulse 93 H 06/07/20 06:35 Resp 16 06/07/20 06:35 BP 113/82 06/07/20 06:35 Pulse Ox 99 06/05/20 17:30 Results & Data ([facility]) Current Inpatient Medications Current Inpatient Medications: Current Inpatient Medications Acetaminophen (Acetaminophen 325 Mg Tab) 650 mg PO Q4H PRN PRN Reason: Headache or Minor Fever Stop: 07/05/20 16:25 Last Admin: 06/06/20 15:41 Dose: 650 mg Documented by: Al Hydrox/Mg Hydrox/Simethicone (Aluminum/Magnesium Susp 30 Ml Udc) 30 ml PO Q4H PRN PRN Reason: GI Upset Stop: 07/05/20 16:25 Bismuth Subsalicylate (Bismuth Subsalicylate Liqd 236 Ml) 15 ml PO PRN PRN PRN Reason: Loose Stool Stop: 07/05/20 16:25 Cetirizine HCl (Cetirizine Hcl 10 Mg Tablet) 10 mg PO QAM DAX Stop: 07/06/20 08:59 Last Admin: 06/07/20 08:29 Dose: 10 mg Documented by: Hydroxyzine HCl (Hydroxyzine Hcl 25 Mg Tab) 50 mg PO HSZ PRN PRN Reason: Insomnia Stop: 07/05/20 16:25 Last Admin: 06/06/20 21:58 Dose: 50 mg Documented by: Hydroxyzine HCl (Hydroxyzine Hcl 25 Mg Tab) 25 mg PO Q4H PRN PRN Reason: Anxiety Stop: 07/05/20 16:25 Magnesium Hydroxide (Magnesium Hydroxide Susp 30 Ml Udc) 30 ml PO DAILY PRN PRN Reason: Constipation Stop: 07/05/20 16:25 Miscellaneous (Patient's Own Oral Contraceptive) 1 ea PO QAM DAX Stop: 07/06/20 08:59 Last Admin: 06/07/20 08:29 Dose: 1 ea Documented by: Rizatriptan Benzoate (Rizatriptan Benzoate 10 Mg Tab) 10 mg PO Q2H PRN PRN Reason: Migraine Headache Stop: 07/05/20 16:30 Sodium Chloride (Sodium Chloride 0.65% Na Soln 45 Ml ([place])) 1 - 2 sprays NA PRN PRN PRN Reason: Nasal Dryness/Congestion Stop: 07/05/20 16:25 Topiramate (Topiramate 25 Mg Tab) 25 mg PO BID DAX Stop: 07/05/20 20:59 Last Admin: 06/07/20 08:29 Dose: 25 mg Documented by: Venlafaxine HCl (Venlafaxine Hcl Xr 75 Mg Capxr) 75 mg PO QAM DAX Stop: 07/06/20 08:59 Last Admin: 06/07/20 08:28 Dose: 75 mg Documented by: Mental Health & Subst Abuse Tx Therapist Name of Therapist: Tsering Granados M.S., CHEMICAL CELL CHANGER, CRC Therapist's / [email or web address] Appointment Comment[facility] [employer] Name of [employer]: [facility] Phone Number for [employer]: [phone] Case Management Appointment Comment: Will contact you Post Discharge Appointments Primary Care Physician Name Of Family Doctor: CELSA Primary Care Provider Appointment Comment: [facility] Contact Information Discharge Discharge Address: [address] [place] [address], [facility], [place], [place] (1) Depression Depression Type: unspecified Qualified Code(s): F32.9 - Major depressive disorder, single episode, unspecified
[2020-06-07] MEDS ORDERED: OXYMETAZOLINE 0.05% 30 ML BTL PRN (10:28)
[2020-06-07] MEDS ORDERED: PSEUDOEPHEDRINE HCL 30 MG TAB PO PRN (10:49)
[2020-06-07] MEDS: VENLAFAXINE HCL XR 37.5 MG CAPXR PO SCH (11:16)
[2020-06-07] MEDS: lamoTRIgine 25 MG TAB PO SCH (11:16)
[2020-06-07] MEDS: hydrOXYzine HCl 25 MG TAB PO PRN (22:02)
[2020-06-08] MEDS: VENLAFAXINE HCL XR 37.5 MG CAPXR PO SCH (08:55)
[2020-06-08] MEDS: lamoTRIgine 25 MG TAB PO SCH (08:55)
[2020-06-08] MEDS: CETIRIZINE HCL 10 MG TABLET PO SCH (08:55)
[2020-06-08] MEDS: TOPIRAMATE 25 MG TAB PO SCH ×2 (08:55→21:12)
[2020-06-08] MEDS: PATIENT'S OWN ORAL CONTRACEPTIVE PO SCH (08:55)
[2020-06-08] MEDS: VENLAFAXINE HCL XR 75 MG CAPXR PO SCH (08:55)
--- NOTE | 2020-06-08 09:06 | Psychiatric Progress Note ---
Date of Service June 08, 2020 Impression / Recommendations Impression 19 y/o F [employer] student from [place] with long standing depression, anxiety, and cluster B traits vs hypomanic symptoms/bipolar II who presents with increased mood lability and feeling out of control with her emotions, with self injury by cutting and suicidal thoughts. She has been on venlafaxine XR off and on for the past 1.5 years, most recently resumed about 6 months ago, and just increased to 75mg daily about 2 weeks ago. She recently started therapy, and will need a family meeting/exploration of supports and referral for psychiatry. Inpatient treatment is medically necessary due to severity of symptoms and risk for self harm if discharged. (1) Depression: 06/06 - Differential includes MDD, bipolar II (although per her report periods of elevated mood do not last long enough to qualify as hypomanic episodes), and borderline PD. Reviewed these with patient, discussed need to get collateral information to help clarify diagnosis, and plan to treat based on targeting problematic symptoms in the meantime. -Discussed option of titrating venlafaxine XR further and/or addition of a mood stabilizer. Specifically discussed lamotrigine, given favorable side effect profile when compared to lithium or an atypical antipsychotic, and reviewed risks, benefits, and side effects, including SJS and need to follow standard dose titration schedule to minimize this risk. Provided her with an UpToDate handout about the medication and she would like to read it and think about it, will continue to provide education as needed. -Encourage group attendance and participation, work on healthy coping skills and discharge safety plan. -Family meeting with ? or roommate, vs other family. -Coordinate with outpatient therapist, and refer for psychiatric care. 06/07 -again reviewed information about lamotrigine, including the need to follow the standard dose titration schedule and potential side effects. Patient agreed to a trial, will follow the standard initiation schedule (25 mg daily X 2 weeks, 50 mg daily X 2 weeks, then 100 mg daily). Reviewed drug drug interactions, including that her norethindrone can reduce the lamotrigine level, so she may require a higher dose of lamotrigine. -Increase venlafaxine XR to 112.5 mg daily to target mood and anxiety. Reviewed risks including mood destabilization. -Patient is working on the patient workbook and her safety plan, continue to provide education and support. 06/08 - Continue current medication regimen - Pt scheduled for a family meeting with this afternoon to review safety and discharge planning - Pt scheduled for medication management with [facility], but not able to be seen until 08/2020 - will see if S can manage prescriptions in the interim, as they are presently prescribing medications. (2) Cluster B personality disorder: 06/06 - Chronic SI, SIB by cutting, and chronic mood instability with marked reactivity of mood. Continue to explore, provide psychoeducation (3) Dysmenorrhea: 06/07 -continue home dose of norethindrone, which patient states being used for menstrual cycle regulation. Reviewed drug drug interactions as above. Also reviewed that her topiramate can reduce norethindrone levels, which could lead to ineffective control. She is aware to use barrier protection. She has tried multiple other forms of contraception, including an IUD (too painful), NuvaRing, and only recently started norethindrone. Follow-up with MEMORIAL ADVISER as recommended. (4) Nasal congestion: -patient reporting nasal congestion, denies fever, productive cough, yellow/green sputum, headaches. Supportive treatment, including acetaminophen as needed, Afrin twice daily as needed, pseudoephedrine every 6 hours as needed. Warned about risk of increased anxiety, insomnia with decongestant. Risk Factors Assessment Male: No : Yes Do You Have Access To A Gun?: No Health Problems: Yes Mental Health Diagnoses: Yes Substance Use Disorders: No Previous Attempt: Yes Previous Attempt; Didn't Tell Anyone: Yes Family History of Suicide: Yes Previous Psychiatric Hospitalization: No Hopelessness: No Smoker: No Protective Factors Assessment : Yes Responsible for Young Children: No Employed: Yes ([employer] p/t) Stable Relationships: Yes Supportive Family: No Interval History Identifying Information TEENA MURPHY is a 19-year-old female [employer] student from [place], has a history of depression, and was admitted on 06/05/20 16:26 on a 201 voluntary commitment for suicidal ideation and inability to contract for safety outside the hospital. Chief Complaint "Pretty good, I definitely feel better." Review of Systems Notes Constitutional: reports sudden onset of fatigue this afternoon Cardiovascular: denied Respiratory: denied Gastrointestinal: denied Neurological: denied Psychiatric: denies symptoms other than stated above Total of at least 10 systems reviewed, pertinent positives as above and in HPI. Sleep Information Total Hours of Sleep: 6 Sleep Comments: pt on q-15 minute checks Meal Information Percent Meal Consumed - Breakfast: 80 Percent Meal Consumed - Lunch: 100 Percent Meal Consumed - Dinner: 100 Subjective Subjective Patient was seen & assessed and interval progress reviewed with treatment team. Staff report the patient has been participating appropriate in group programming and has been supportive of peers. Pt is scheduled to participate in a family meeting with her this afternoon. Pt was seen today to assess progress since admission. Pt states she is "pretty good, I definitely feel better." Pt denies suicidal and self-harm thoughts for the past 2 days, but admits "I think it will be a lot different when I'm out of the hospital. It's easy to distract yourself here." Pt states that she is hoping to "focus less on things I can't control" when she is discharged, and feels groups have been helpful in providing coping skills and challenging negative thinking. Pt states she is also helpful to establish routines. Pt does admit she is a little nervous for her meeting this afternoon, and does want to provide her with some insight regarding specific phrases that may be more comforting to her when she is experiencing anxiety/stress. Pt denied questions related to her medication regimen. She denied other needs or concerns today. Physical Exam Psychiatric Orientation: alert, oriented x 3 and cooperative Apperance: appropriately dressed, appropriately groomed and appeared stated age Eye Contact: good eye contact Motor Behavior: steady gait and station and no abnormal motor movements Speech: normal rate/rhythm/volume of speech Affect: + anxious affect and mood congruent with affect Mood: + depressed mood and + anxious mood Thought Process: goal directed thought process, clear/coherent thought process and thought association intact Thought Content: reality based without delusions; no hopelessness and no worthlessness Suicidal Thoughts: denies suicidal thoughts and denies suicidal intent Homicidal Thoughts: denies homicidal thoughts Hallucinations: no auditory hallucinations and no visual hallucinations Cognition: recent memory grossly intact and language grossly intact Estimated Intelligence: consistent with education level Insight: + fair insight Judgement: + fair judgement Vital Signs (Past 24 Hours) Last Vital Signs Temp 36.7 C 06/08/20 06:32 Pulse 98 H 06/08/20 06:33 Resp 16 06/08/20 06:32 BP 106/78 06/08/20 06:33 Pulse Ox 99 06/05/20 17:30 Results & Data ([facility]) Current Inpatient Medications Current Inpatient Medications: Current Inpatient Medications Acetaminophen (Acetaminophen 325 Mg Tab) 650 mg PO Q4H PRN PRN Reason: Headache or Minor Fever Stop: 07/05/20 16:25 Last Admin: 06/06/20 15:41 Dose: 650 mg Documented by: Al Hydrox/Mg Hydrox/Simethicone (Aluminum/Magnesium Susp 30 Ml Udc) 30 ml PO Q4H PRN PRN Reason: GI Upset Stop: 07/05/20 16:25 Bismuth Subsalicylate (Bismuth Subsalicylate Liqd 236 Ml) 15 ml PO PRN PRN PRN Reason: Loose Stool Stop: 07/05/20 16:25 Cetirizine HCl (Cetirizine Hcl 10 Mg Tablet) 10 mg PO QAM [facility] Stop: 07/06/20 08:59 Last Admin: 06/08/20 08:55 Dose: 10 mg Documented by: Hydroxyzine HCl (Hydroxyzine Hcl 25 Mg Tab) 50 mg PO HSZ PRN PRN Reason: Insomnia Stop: 07/05/20 16:25 Last Admin: 06/07/20 22:02 Dose: 50 mg Documented by: Hydroxyzine HCl (Hydroxyzine Hcl 25 Mg Tab) 25 mg PO Q4H PRN PRN Reason: Anxiety Stop: 07/05/20 16:25 Lamotrigine (Lamotrigine 25 Mg Tab) 25 mg PO QAM [facility] Stop: 07/07/20 10:44 Last Admin: 06/08/20 08:55 Dose: 25 mg Documented by: Magnesium Hydroxide (Magnesium Hydroxide Susp 30 Ml Udc) 30 ml PO DAILY PRN PRN Reason: Constipation Stop: 07/05/20 16:25 Miscellaneous (Patient's Own Oral Contraceptive) 1 ea PO QAM DAX Stop: 07/06/20 08:59 Last Admin: 06/08/20 08:55 Dose: 1 ea Documented by: Oxymetazoline HCl (Oxymetazoline 0.05% 30 Ml Btl) 1 sprays NA BID PRN PRN Reason: Congestion Stop: 07/07/20 10:27 Pseudoephedrine HCl (Pseudoephedrine Hcl 30 Mg Tab) 30 mg PO Q6H PRN PRN Reason: Congestion Stop: 07/07/20 10:48 Rizatriptan Benzoate (Rizatriptan Benzoate 10 Mg Tab) 10 mg PO Q2H PRN PRN Reason: Migraine Headache Stop: 07/05/20 16:30 Sodium Chloride (Sodium Chloride 0.65% Na Soln 45 Ml ([place])) 1 - 2 sprays NA PRN PRN PRN Reason: Nasal Dryness/Congestion Stop: 07/05/20 16:25 Topiramate (Topiramate 25 Mg Tab) 25 mg PO BID DAX Stop: 07/05/20 20:59 Last Admin: 06/08/20 08:55 Dose: 25 mg Documented by: Venlafaxine HCl (Venlafaxine Hcl Xr 75 Mg Capxr) 75 mg PO QAM DAX Stop: 07/06/20 08:59 Last Admin: 06/08/20 08:55 Dose: 75 mg Documented by: Venlafaxine HCl (Venlafaxine Hcl Xr 37.5 Mg Capxr) 37.5 mg PO QAM DAX Stop: 07/07/20 10:44 Last Admin: 06/08/20 08:55 Dose: 37.5 mg Documented by: Mental Health & Subst Abuse Tx Psychiatrist Name of Psychiatrist: [facility] Psychiatrist's Date of Appointment with Psychiatrist: 08/26/20 Time of Appointment with Psychiatrist: 9:30 a.m. Psychiatric Appointment Comment: [phone] [facility] Therapist Name of Therapist: Tsering Granados M.S., LEDGER POSTER, CRC Therapist's / [email or web address] Date of Therapist Appointment: 06/14/20 Time of Therapist Appointment: 11:00 a.m. Therapy Appointment Comment: [address] [facility] K[place]HA Whaley [id number] Machine Splitter Name of Machine Splitter: [facility] Yayo [employer]z Phone Number for Machine Splitter: [phone] Date of Appointment with Machine Splitter: 06/15/20 Time of Appointment with Machine Splitter: 1:30 p.m. Case Management Appointment Comment: Will contact you Post Discharge Appointments Primary Care Physician Name Of Family Doctor: [facility] Primary Care Provider Appointment Comment: [facility] Contact Information Discharge Discharge Address: [address] [place] [address], [facility], [place], [place] (1) Depression Depression Type: unspecified Qualified Code(s): F32.9 - Major depressive disorder, single episode, unspecified
[2020-06-08] MEDS: ACETAMINOPHEN 325 MG TAB PO PRN (10:29)
[2020-06-08] MEDS: hydrOXYzine HCl 25 MG TAB PO PRN (21:46)
[2020-06-09] MEDS: VENLAFAXINE HCL XR 75 MG CAPXR PO SCH (08:32)
[2020-06-09] MEDS: VENLAFAXINE HCL XR 37.5 MG CAPXR PO SCH (08:32)
[2020-06-09] MEDS: lamoTRIgine 25 MG TAB PO SCH (08:34)
[2020-06-09] MEDS: CETIRIZINE HCL 10 MG TABLET PO SCH (08:35)
[2020-06-09] MEDS: TOPIRAMATE 25 MG TAB PO SCH ×2 (08:35→21:09)
[2020-06-09] MEDS: PATIENT'S OWN ORAL CONTRACEPTIVE PO SCH (08:35)
--- NOTE | 2020-06-09 08:58 | Psychiatric Progress Note ---
Date of Service June 09, 2020 Impression / Recommendations Impression 19 y/o F [employer] student from [place] with long standing depression, anxiety, and cluster B traits vs hypomanic symptoms/bipolar II who presents with increased mood lability and feeling out of control with her emotions, with self injury by cutting and suicidal thoughts. She has been on venlafaxine XR off and on for the past 1.5 years, most recently resumed about 6 months ago, and just increased to 75mg daily about 2 weeks ago. She recently started therapy, and will need a family meeting/exploration of supports and referral for psychiatry. Inpatient treatment is medically necessary due to severity of symptoms and risk for self harm if discharged. (1) Depression: 06/06 - Differential includes MDD, bipolar II (although per her report periods of elevated mood do not last long enough to qualify as hypomanic episodes), and borderline PD. Reviewed these with patient, discussed need to get collateral information to help clarify diagnosis, and plan to treat based on targeting problematic symptoms in the meantime. -Discussed option of titrating venlafaxine XR further and/or addition of a mood stabilizer. Specifically discussed lamotrigine, given favorable side effect profile when compared to lithium or an atypical antipsychotic, and reviewed risks, benefits, and side effects, including SJS and need to follow standard dose titration schedule to minimize this risk. Provided her with an UpToDate handout about the medication and she would like to read it and think about it, will continue to provide education as needed. -Encourage group attendance and participation, work on healthy coping skills and discharge safety plan. -Family meeting with ? or roommate, vs other family. -Coordinate with outpatient therapist, and refer for psychiatric care. 06/07 -again reviewed information about lamotrigine, including the need to follow the standard dose titration schedule and potential side effects. Patient agreed to a trial, will follow the standard initiation schedule (25 mg daily X 2 weeks, 50 mg daily X 2 weeks, then 100 mg daily). Reviewed drug drug interactions, including that her norethindrone can reduce the lamotrigine level, so she may require a higher dose of lamotrigine. -Increase venlafaxine XR to 112.5 mg daily to target mood and anxiety. Reviewed risks including mood destabilization. -Patient is working on the patient workbook and her safety plan, continue to provide education and support. 06/08 - Continue current medication regimen - Pt scheduled for a family meeting with this afternoon to review safety and discharge planning - Pt scheduled for medication management with [facility], but not able to be seen until 08/2020 - will see if S can manage prescriptions in the interim, as they are presently prescribing medications. 06/09 - Pt agreeable to titrating dose of venlafaxine to 150mg daily. Will add a supplemental dose of 37.5mg this afternoon. - Pt reports support meeting with yesterday was positive - Anticipate discharge tomorrow, though patient continues to experience some anticipatory anxiety (2) Cluster B personality disorder: 06/06 - Chronic SI, SIB by cutting, and chronic mood instability with marked reactivity of mood. Continue to explore, provide psychoeducation (3) Dysmenorrhea: 06/07 -continue home dose of norethindrone, which patient states being used for menstrual cycle regulation. Reviewed drug drug interactions as above. Also reviewed that her topiramate can reduce norethindrone levels, which could lead to ineffective control. She is aware to use barrier protection. She has tried multiple other forms of contraception, including an IUD (too painful), NuvaRing, and only recently started norethindrone. Follow-up with RECRUITMENT MANAGER as recommended. (4) Nasal congestion: -patient reporting nasal congestion, denies fever, productive cough, yellow/green sputum, headaches. Supportive treatment, including acetaminophen as needed, Afrin twice daily as needed, pseudoephedrine every 6 hours as needed. Warned about risk of increased anxiety, insomnia with decongestant. Risk Factors Assessment Male: No : Yes Do You Have Access To A Gun?: No Health Problems: Yes Mental Health Diagnoses: Yes Substance Use Disorders: No Previous Attempt: Yes Previous Attempt; Didn't Tell Anyone: Yes Family History of Suicide: Yes Previous Psychiatric Hospitalization: No Hopelessness: No Smoker: No Protective Factors Assessment : Yes Responsible for Young Children: No Employed: Yes ([employer]) Stable Relationships: Yes Supportive Family: No Interval History Identifying Information TEENA MURPHY is a 19-year-old female [employer] student from [place], has a history of depression, and was admitted on 06/05/20 16:26 on a 201 voluntary commitment for suicidal ideation and inability to contract for safety outside the hospital. Chief Complaint "Ok. Pretty good." Review of Systems Notes Constitutional: denied Cardiovascular: denied Respiratory: denied Gastrointestinal: denied Neurological: denied Psychiatric: denies symptoms other than stated above Total of at least 10 systems reviewed, pertinent positives as above and in HPI. Sleep Information Total Hours of Sleep: 6.5 Sleep Comments: pt on q-15 minute checks Meal Information Percent Meal Consumed - Breakfast: 70 Percent Meal Consumed - Lunch: 100 Percent Meal Consumed - Dinner: 100 Subjective Subjective Patient was seen & assessed and interval progress reviewed with nursing and social work. Staff report the patient has been participating in group programming. She has been ruminating a bit with anxiety related to discharge, and has been focused on discussing with staff exactly how this transition will go. Pt had a productive meeting with her yesterday via phone. Pt was seen today to assess progress since admission. Pt states she is "ok. Pretty good." Pt states that her meeting with her went well. She admits, "he did a lot of listening, but we were able to talk about signs that he sees when I'm depressed." Pt reports a recognition that monitoring for signs of depression will likely be a life-long task, but that ideally the severity, frequency, and duration of episodes will decrease over time. We discussed ways that patient can be sure to prioritize her mental health treatment, especially with likely travel related to her 's career. Pt denies SI and admits that she was still feeling very anxious yesterday. Today, she is feeling more calm and prepared for the idea of discharge. Pt did agree to titrating her venlafaxine to 150mg by adding a supplemental dose today. She denies any medication concerns at this time. Pt denies other needs or concerns and believes she may be ready for discharge tomorrow. Physical Exam Psychiatric Orientation: alert, oriented x 3 and cooperative Apperance: appropriately dressed, appropriately groomed and appeared stated age Eye Contact: good eye contact Motor Behavior: steady gait and station and no abnormal motor movements Speech: normal rate/rhythm/volume of speech Affect: + anxious affect and mood congruent with affect Mood: no depressed mood and no anxious mood "Pretty good" and "I'm feeling a lot better about everything now" Thought Process: goal directed thought process, clear/coherent thought process and thought association intact Thought Content: reality based without delusions; no hopelessness and no worthlessness Suicidal Thoughts: denies suicidal thoughts and denies suicidal intent Homicidal Thoughts: denies homicidal thoughts Hallucinations: no auditory hallucinations and no visual hallucinations Cognition: recent memory grossly intact, attention grossly intact and language grossly intact Estimated Intelligence: consistent with education level Insight: + fair insight Judgement: + fair judgement Vital Signs (Past 24 Hours) Last Vital Signs Temp 36.7 C 06/09/20 06:36 Pulse 81 06/09/20 06:36 Resp 16 06/09/20 06:36 BP 126/92 06/09/20 06:36 Pulse Ox 99 06/05/20 17:30 Results & Data ([facility]) Current Inpatient Medications Current Inpatient Medications: Current Inpatient Medications Acetaminophen (Acetaminophen 325 Mg Tab) 650 mg PO Q4H PRN PRN Reason: Headache or Minor Fever Stop: 07/05/20 16:25 Last Admin: 06/08/20 10:29 Dose: 650 mg Documented by: Al Hydrox/Mg Hydrox/Simethicone (Aluminum/Magnesium Susp 30 Ml Udc) 30 ml PO Q4H PRN PRN Reason: GI Upset Stop: 07/05/20 16:25 Bismuth Subsalicylate (Bismuth Subsalicylate Liqd 236 Ml) 15 ml PO PRN PRN PRN Reason: Loose Stool Stop: 07/05/20 16:25 Cetirizine HCl (Cetirizine Hcl 10 Mg Tablet) 10 mg PO QAM DAX Stop: 07/06/20 08:59 Last Admin: 06/09/20 08:35 Dose: 10 mg Documented by: Hydroxyzine HCl (Hydroxyzine Hcl 25 Mg Tab) 50 mg PO HSZ PRN PRN Reason: Insomnia Stop: 07/05/20 16:25 Last Admin: 06/08/20 21:46 Dose: 50 mg Documented by: Hydroxyzine HCl (Hydroxyzine Hcl 25 Mg Tab) 25 mg PO Q4H PRN PRN Reason: Anxiety Stop: 07/05/20 16:25 Lamotrigine (Lamotrigine 25 Mg Tab) 25 mg PO QAM DAX Stop: 07/07/20 10:44 Last Admin: 06/09/20 08:34 Dose: 25 mg Documented by: Magnesium Hydroxide (Magnesium Hydroxide Susp 30 Ml Udc) 30 ml PO DAILY PRN PRN Reason: Constipation Stop: 07/05/20 16:25 Miscellaneous (Patient's Own Oral Contraceptive) 1 ea PO QAM DAX Stop: 07/06/20 08:59 Last Admin: 06/09/20 08:35 Dose: 1 ea Documented by: Oxymetazoline HCl (Oxymetazoline 0.05% 30 Ml Btl) 1 sprays NA BID PRN PRN Reason: Congestion Stop: 07/07/20 10:27 Last Admin: 06/09/20 08:36 Dose: 1 sprays Documented by: Pseudoephedrine HCl (Pseudoephedrine Hcl 30 Mg Tab) 30 mg PO Q6H PRN PRN Reason: Congestion Stop: 07/07/20 10:48 Rizatriptan Benzoate (Rizatriptan Benzoate 10 Mg Tab) 10 mg PO Q2H PRN PRN Reason: Migraine Headache Stop: 07/05/20 16:30 Sodium Chloride (Sodium Chloride 0.65% Na Soln 45 Ml ([place])) 1 - 2 sprays NA PRN PRN PRN Reason: Nasal Dryness/Congestion Stop: 07/05/20 16:25 Topiramate (Topiramate 25 Mg Tab) 25 mg PO BID DAX Stop: 07/05/20 20:59 Last Admin: 06/09/20 08:35 Dose: 25 mg Documented by: Venlafaxine HCl (Venlafaxine Hcl Xr 75 Mg Capxr) 75 mg PO QAM DAX Stop: 07/06/20 08:59 Last Admin: 06/09/20 08:32 Dose: 75 mg Documented by: Venlafaxine HCl (Venlafaxine Hcl Xr 37.5 Mg Capxr) 37.5 mg PO QAM DAX Stop: 07/07/20 10:44 Last Admin: 06/09/20 08:32 Dose: 37.5 mg Documented by: Mental Health & Subst Abuse Tx Psychiatrist Name of Psychiatrist: Esteban Potter Psychiatrist's Date of Appointment with Psychiatrist: 08/26/20 Time of Appointment with Psychiatrist: 9:30 a.m. Psychiatric Appointment Comment: [id number] [facility] Therapist Name of Therapist: Tsering Granados M.S., DIETARY CLERK, CRC Therapist's / [email or web address] Date of Therapist Appointment: 06/14/20 Time of Therapist Appointment: 11:00 a.m. Therapy Appointment [facility] [place] [address] Tool And Die Repairer Name of Tool And Die Repairer: Oneyda Gamze Phone Number for Tool And Die Repairer: [phone] Date of Appointment with Tool And Die Repairer: 06/15/20 Time of Appointment with Tool And Die Repairer: 1:30 p.m. Case Management Appointment Comment: Will contact you Post Discharge Appointments Primary Care Physician Name Of Family Doctor: CELSA [facility]rd [facility] Date of Appointment with PCP: 06/20/20 Time of Appointment with PCP: 10:40 a.m. (please arrive 5-10 min early) Provider Appointment Comment: [facility] Contact Information Discharge Discharge Address: [address] [place] [address], [facility], [place], [place] (1) Depression Depression Type: unspecified Qualified Code(s): F32.9 - Major depressive disorder, single episode, unspecified
[2020-06-09] MEDS ORDERED: VENLAFAXINE HCL XR 37.5 MG CAPXR PO ONE (13:00)
[2020-06-09] MEDS: hydrOXYzine HCl 25 MG TAB PO PRN ×2 (21:48→23:25)
[2020-06-10 06:28] VITALS: BP 112/76; TEMP 97.9
[2020-06-10] MEDS: PATIENT'S OWN ORAL CONTRACEPTIVE PO SCH (08:28)
[2020-06-10] MEDS: CETIRIZINE HCL 10 MG TABLET PO SCH (08:28)
[2020-06-10] MEDS: TOPIRAMATE 25 MG TAB PO SCH (08:28)
[2020-06-10] MEDS: lamoTRIgine 25 MG TAB PO SCH (08:28)
[2020-06-10] MEDS ORDERED: VENLAFAXINE HCL XR 150 MG CAPXR PO SCH (09:00)
[2020-06-10 10:02] VITALS: PULSE 95
--- NOTE | 2020-06-10 10:50 | Discharge Summary ---
Date of Service June 10, 2020 History of Present Illness Patient presented to the ER reporting worsening depression and a wish to be . She was unable to contract for safety outside the hospital. Admission labs were normal, and she signed in voluntarily for hospitalization. On my assessment, patient reports she has been feeling increasingly out of control, overwhelmed, with intense emotions. She had been diagnosed with depression in high school, but didn't take medication as "my mom doesn't really believe in it," and did not get treatment until her freshman year of college, when she started escitalopram, then sertraline the following year, and venlafaxine XR was started about a year and a half ago, although she went off it for about 6 months as she didn't have insurance, and resumed it 6-7 months ago, and her dose was increased about 2 months ago, initially seemed to help, but then stopped. She has never been on higher doses. She reports mood is "down, depressed, hopeless, tired all the time, can't think well, thoughts aren't in a line, can't do my schoolwork" for > 1 month. She is "able to be happy, but don't really feel it to my core." Sleep is disrupted, can't sleep at night but then naps "all day." Appetite is poor but has gained weight. Reports SI and "I'd be better off ." Reports multiple stressors including that her moved cross country () at the beginning of the month, and her best friend was diagnosed with cancer. She reports periods of elevated mood lasting a couple hours to a couple of days, where she feels "really good about myself, want to change and be a better person," makes a lot of lists of things she wants to do, but doesn't follow through. Endorses rapid and excessive speech. Denies increase in pleasure seeking behavior or decreased need for sleep, states she is "always tired." She also reports anxiety with worry, rumination, feeling on edge, and reports these are life long symptoms. Started cutting age 13, had not cut for a year until a couple of weeks ago, and then cut twice. Does it when feels out of control, as gives her a sense of control. Uses a pocket knife or razor to cut, usually on thighs, but now on arms. Thinks triggered by going home a couple of weeks ago, and sister was self harming, "I found harm." Denies recent panic attacks, but has had them in the past. Denies psychosis, OCD, PTSD, eating disorder. States her therapist told her she had ADHD based on a "quiz" she took, but she feels depressive symptoms are the main issue. Eduarda by avoidance. Physical Exam Psychiatric Orientation: alert, oriented x 3 and cooperative Apperance: appropriately dressed and appropriately groomed Eye Contact: + fair eye contact Motor Behavior: steady gait and station Speech: normal rate/rhythm/volume of speech Affect: euthymic affect "A whole lot better." Thought Process: goal directed thought process Thought Content: reality based without delusions Suicidal Thoughts: denies suicidal thoughts Homicidal Thoughts: denies homicidal thoughts Hallucinations: no auditory hallucinations and no visual hallucinations Cognition: recent memory grossly intact Estimated Intelligence: + above average estimated intelligence Insight: + fair insight Judgement: + fair judgement Vital Signs (Past 24 Hours) Last Vital Signs Temp 36.6 C 06/10/20 10:00 Pulse 95 H 06/10/20 10:00 Resp 16 06/10/20 10:00 BP 112/76 06/10/20 10:00 Pulse Ox 99 06/10/20 10:00 Principal Diagnosis Major Depressive Disorder Psychiatric Data During the course of hospitalization the patient was offered various modalities of psychiatric treatment and education. She participated actively in individual, group, and recreational therapy. In addition, the patient was provided with psychiatric chemotherapy. Her outpatient dose of venlafaxine was increased from 75 mg a day to 150 mg a day, and the patient tolerated this increase without any noticed adverse effects. The patient also was started on lamotrigine 25 mg a day as a mood stabilizer. Material risks, including but not limited to Bianchi-Bernardo syndrome were reviewed with the patient at the time of prescription again at discharge. The patient reports that she is not aware of any rash and says that she is tolerating lamotrigine well. She also understands that the dose will need to be titrated on an outpatient basis, as necessary. Finally, the patient did receive some benefit from hydroxyzine 50 mg at bedtime for sleep. In individual, group and recreational therapy the patient worked on improving her individual coping strategies and she developed a number of self soothing techniques that she was able to practice in the hospital. She also developed a reasonably comprehensive safety plan for the community, and at discharge she was able to describe the details of the plan. The patient reported that she was feeling significantly better and feels prepared to continue her treatment on an outpatient basis. The treatment team is in agreement that the patient has received maximum benefit from inpatient psychiatric hospitalization and she can now be safely and effectively discharge for continued treatment on an outpatient basis. Day of Discharge Assessment On the day of discharge the patient was found to be fully cooperative with the discharge assessment and aftercare planning. She was appropriately dressed and groomed. The patient's speech was delivered at a normal rate and volume and was spontaneous. Her thought processes demonstrated tight associations. Her thought content was devoid of any psychotic features. She focused primarily on the skills that she has learned in the hospital, and expects that these skills will help prevent her from using intentional self-injurious behaviors as a coping strategy. There is no evidence of any perceptual disturbances. The patient convincingly reports that she is not experiencing any further thoughts of suicide and, as noted above, has developed a fairly comprehensive safety plan for community reentry. The patient also is future oriented and talks about her long-term plans. She reports that has no thoughts of causing physical harm to the person or property of others. Although her is currently stationed in the in [place], she is able to use him as a support, telephonically. Support will also come from her mother, several friends and, in particular, her current roommate. The patient's intelligence is assessed as b eing above average. Her judgment and insight are at least fair at this point. Transition of Care Transition Of Care Record: was reviewed with the patient Advance Directives Advance Directives Information Provided: Yes Advance Directives: No Mental Health Advance Directive: No Advance Directives on File: No Living Will: No Power of Door Slinger: No Advance Directives Reason:: Declines as Mental Health Visit. Risk Factors Assessment Major mental illnesses; history of self-injurious behaviors; history of suicide attempts. Mitigating factors include a fairly extensive support network. Also, the patient appears to be quite motivated to treatment and to recovery. Male: No : Yes Do You Have Access To A Gun?: No Health Problems: Yes Mental Health Diagnoses: Yes Substance Use Disorders: No Previous Attempt: Yes Previous Attempt; Highly Lethal: No Previous Attempt; Planned: No Previous Attempt; Didn't Tell Anyone: Yes Family History of Suicide: Yes Previous Psychiatric Hospitalization: No Hopelessness: No Smoker: No Protective Factors Assessment : Yes Responsible for Young Children: No Employed: Yes ([employer] p/t) Stable Relationships: Yes Supportive Family: No Good Rapport with Provider: Yes Absence of Any Risk Factors Above: No Tobacco Cessation at Discharge Tobacco Cessation Medication Prescribed at Discharge: Not Applicable/Non-Smoker Total Time Total Time Spent: Greater Than 30 Minutes Total Time Includes: Examination of the patient, Discharge Planning, Medication Reconciliation and Communication with other providers Discharge Data Lab Results 06/05/20 06/05/20 06/05/20 11:36 11:36 11:36 WBC RBC Hgb Hct MCV MCH MCHC RDW Std Deviation RDW Coeff of Rae Plt Count MPV Immature Gran % (Auto) Neut % (Auto) Lymph % (Auto) [place] % (Auto) Eos % (Auto) Baso % (Auto) Neut # (Auto) Lymph # (Auto) [place] # (Auto) Eos # (Auto) Baso # (Auto) Immature Gran # (Auto) Platelet Estimate Sodium Potassium Chloride Carbon Dioxide Anion Gap BUN Creatinine Est Cr Clr Drug Dosing Est GFR ( Amer) Est GFR (Non-Af Amer) BUN/Creatinine Ratio Glucose Calcium Total Bilirubin AST ALT Alkaline Phosphatase Total Protein Albumin Globulin Albumin/Globulin Ratio TSH Urine Color Dark Yellow Urine Appearance Clear Urine pH >= 9.0 H Ur Specific Bush 1.027 Urine Protein Negative Urine Glucose (UA) Negative Urine Ketones Trace H Urine Blood Negative Urine Nitrite Negative Urine Bilirubin Negative Urine Urobilinogen Negative Ur Leukocyte Esterase Negative POC Ur Test NEG Salicylates Urine Opiates Screen Neg Ur Methadone, Qual Neg Acetaminophen Urine Barbiturates Neg Ur Phencyclidine (PCP) Neg U Amphetamin/Meth Scrn Neg MDMA (Ecstasy) Screen Neg U Benzodiazepines Scrn Neg Ur Cocaine Metabolite Neg U Marijuana (THC) Screen Neg Ethyl Alcohol mg/dL COVID-19 Eval Order SARS-CoV-2, RNA, NAAT 06/05/20 06/05/20 06/05/20 13:22 13:22 13:22 WBC RBC Hgb Hct MCV MCH MCHC RDW Std Deviation RDW Coeff of Rae Plt Count MPV Immature Gran % (Auto) Neut % (Auto) Lymph % (Auto) [place] % (Auto) Eos % (Auto) Baso % (Auto) Neut # (Auto) Lymph # (Auto) [place] # (Auto) Eos # (Auto) Baso # (Auto) Immature Gran # (Auto) Platelet Estimate Sodium 137 Potassium 3.8 Chloride 108 H Carbon Dioxide 24 Anion Gap 5.0 BUN 10 Creatinine 0.91 Est Cr Clr Drug Dosing 92.5 Est GFR ( Amer) 104.5 Est GFR (Non-Af Amer) 90.2 BUN/Creatinine Ratio 10.6 Glucose 79 Calcium 9.3 Total Bilirubin 0.7 AST 21 ALT 43 Alkaline Phosphatase 74 Total Protein 7.8 Albumin 3.9 Globulin 3.9 Albumin/Globulin Ratio 1.0 TSH 0.917 Urine Color Urine Appearance Urine pH Ur Specific Bush Urine Protein Urine Glucose (UA) Urine Ketones Urine Blood Urine Nitrite Urine Bilirubin Urine Urobilinogen Ur Leukocyte Esterase POC Ur Test Salicylates < 1.7 L Urine Opiates Screen Ur Methadone, Qual Acetaminophen < 2 L Urine Barbiturates Ur Phencyclidine (PCP) U Amphetamin/Meth Scrn MDMA (Ecstasy) Screen U Benzodiazepines Scrn Ur Cocaine Metabolite U Marijuana (THC) Screen Ethyl Alcohol mg/dL < 3.0 COVID-19 Eval Order SARS-CoV-2, RNA, NAAT 06/05/20 06/05/20 06/05/20 13:23 15:58 15:58 WBC 7.16 RBC 4.60 Hgb 15.0 Hct 43.4 MCV 94.3 MCH 32.6 MCHC 34.6 RDW Std Deviation 42.0 RDW Coeff of Rae 12.2 Plt Count 236 MPV 9.6 Immature Gran % (Auto) 0.3 Neut % (Auto) 66.5 Lymph % (Auto) 22.5 [place] % (Auto) 6.6 Eos % (Auto) 3.8 Baso % (Auto) 0.3 Neut # (Auto) 4.77 Lymph # (Auto) 1.61 [place] # (Auto) 0.47 Eos # (Auto) 0.27 Baso # (Auto) 0.02 Immature Gran # (Auto) 0.02 Platelet Estimate Normal Sodium Potassium Chloride Carbon Dioxide Anion Gap BUN Creatinine Est Cr Clr Drug Dosing Est GFR ( Amer) Est GFR (Non-Af Amer) BUN/Creatinine Ratio Glucose Calcium Total Bilirubin AST ALT Alkaline Phosphatase Total Protein Albumin Globulin Albumin/Globulin Ratio TSH Urine Color Urine Appearance Urine pH Ur Specific Bush Urine Protein Urine Glucose (UA) Urine Ketones Urine Blood Urine Nitrite Urine Bilirubin Urine Urobilinogen Ur Leukocyte Esterase POC Ur Test Salicylates Urine Opiates Screen Ur Methadone, Qual Acetaminophen Urine Barbiturates Ur Phencyclidine (PCP) U Amphetamin/Meth Scrn MDMA (Ecstasy) Screen U Benzodiazepines Scrn Ur Cocaine Metabolite U Marijuana (THC) Screen Ethyl Alcohol mg/dL COVID-19 Eval Order Covid19 [facility] SARS-CoV-2, RNA, NAAT NEGATIVE Hospital Course (1) Depression: 06/06 - Differential includes MDD, bipolar II (although per her report periods of elevated mood do not last long enough to qualify as hypomanic episodes), and borderline PD. Reviewed these with patient, discussed need to get collateral information to help clarify diagnosis, and plan to treat based on targeting problematic symptoms in the meantime. -Discussed option of titrating venlafaxine XR further and/or addition of a mood stabilizer. Specifically discussed lamotrigine, given favorable side effect profile when compared to lithium or an atypical antipsychotic, and reviewed risks, benefits, and side effects, including SJS and need to follow standard dose titration schedule to minimize this risk. Provided her with an UpToDate handout about the medication and she would like to read it and think about it, will continue to provide education as needed. -Encourage group attendance and participation, work on healthy coping skills and discharge safety plan. -Family meeting with ? or roommate, vs other family. -Coordinate with outpatient therapist, and refer for psychiatric care. 06/07 -again reviewed information about lamotrigine, including the need to follow the standard dose titration schedule and potential side effects. Patient agreed to a trial, will follow the standard initiation schedule (25 mg daily X 2 weeks, 50 mg daily X 2 weeks, then 100 mg daily). Reviewed drug drug interactions, including that her norethindrone can reduce the lamotrigine level, so she may require a higher dose of lamotrigine. -Increase venlafaxine XR to 112.5 mg daily to target mood and anxiety. Reviewed risks including mood destabilization. -Patient is working on the patient workbook and her safety plan, continue to provide education and support. 06/08 - Continue current medication regimen - Pt scheduled for a family meeting with this afternoon to review safety and discharge planning - Pt scheduled for medication management with [facility], but not able to be seen until 08/2020 - will see if S can manage prescriptions in the interim, as they are presently prescribing medications. 06/09 - Pt agreeable to titrating dose of venlafaxine to 150mg daily. Will add a supplemental dose of 37.5mg this afternoon. - Pt reports support meeting with yesterday was positive - Anticipate discharge tomorrow, though patient continues to experience some anticipatory anxiety 06/10 -The patient's dose of venlafaxine has been increased to 150 mg a day, and she indicates that she is tolerating this dose well, apart from a slightly "spacey feeling" that she experienced briefly after taking the increased dose today. Reassurances in this regard were offered. (2) Cluster B personality disorder: 06/06 - Chronic SI, SIB by cutting, and chronic mood instability with marked reactivity of mood. Continue to explore, provide psychoeducation 06/10 -The patient has been started on lamotrigine as a mood stabilizer. The patient identifies difficulty regulating her mood as being one of her biggest psychiatric concerns, and today the material risks associated with lamotrigine were reviewed with the patient. She notes that to date she has had none. The patient also is aware that the dose of this medication may need to be titrated gradually over time, depending upon her response and tolerance. (3) Dysmenorrhea: 06/07 -continue home dose of norethindrone, which patient states being used for menstrual cycle regulation. Reviewed drug drug interactions as above. Also reviewed that her topiramate can reduce norethindrone levels, which could lead to ineffective control. She is aware to use barrier protection. She has tried multiple other forms of contraception, including an IUD (too painful), NuvaRing, and only recently started norethindrone. Follow-up with [facility] as recommended. 06/10 -The patient reports that she has been diagnosed with endometriosis. She is concerned about weight gain and other side effects associated with hormonal treatment, but also notes that norethindrone has been helpful in managing her dysmenorrhea. She plans to continue this medication following discharge. (4) Nasal congestion: 06/07 -patient reporting nasal congestion, denies fever, productive cough, yellow/green sputum, headaches. Supportive treatment, including acetaminophen as needed, Afrin twice daily as needed, pseudoephedrine every 6 hours as needed. Warned about risk of increased anxiety, insomnia with decongestant. 06/10 -Patient describes this as a chronic problem, and notes that it has responded to pseudoephedrine as needed. She is aware of the risks associated with pseudoephedrine. The plan is for her to continue this medication on an outpatient basis, as needed. Mental Health & Subst Abuse Tx Psychiatrist Name of Psychiatrist: Esteban [facility] Psychiatrist's Date of Appointment with Psychiatrist: 08/26/20 Time of Appointment with Psychiatrist: 9:30 a.m. Psychiatric Appointment Comment: [address] [facility] Psychiatrist Release of Information: Obtained, Reviewed and Signed Therapist Name of Therapist: Tsering Granados M.S., [employer], [facility] Therapist's / [email or web address] Date of Therapist Appointment: 06/14/20 Time of Therapist Appointment: 11:00 a.m. Therapy Appointment Comment: [address] [place] [id number] Therapist Release of Information: Obtained, Reviewed and Signed Dye Tub Tender Name of Dye Tub Tender: [employer] [facility] Yayo Gamez Phone Number for Dye Tub Tender: [phone] Date of Appointment with Dye Tub Tender: 06/15/20 Time of Appointment with Dye Tub Tender: 1:30 p.m. Case Management Appointment Comment: Will contact you Post Discharge Appointments Primary Care Physician Name Of Family Doctor: [facility] Date of Appointment with PCP: 06/20/20 Time of Appointment with PCP: 10:40 a.m. (please arrive 5-10 min early) Provider Appointment Comment: [facility] Release of Information: Obtained, Reviewed and Signed Smoking Cessation Counseling Tobacco Cessation Medication Prescribed at Discharge: Not Applicable/Non-Smoker Contact Information Discharge Discharge Address: [address] [place] [address] Discharge Plan Discharge Items Patient Disposition: Home - Self-Care Reason For Visit: MAJOR DEPRESSIVE DISORDER, SINGLE EPISODE SEVERE Discharge Diagnosis: Major Depressive Disorder, Recurrent, Severe Activity: Resume your previous activity Non-emergency contact: Primary Care Provider, Psychiatrist and Therapist Call non-emergency contact if: you have any medication questions and your symptoms worsen Follow-up/Referrals: [facility] [Primary Care Provider] - Diet: Regular Addtl Attending Provider Instructions: SPECIAL CARE INSTRUCTIONS: 1. Follow through with your scheduled aftercare appointments. If unable to keep an appointment, please call to reschedule. 2. Take your medication only as prescribed. Medication should not be changed or stopped without the approval of your doctor. In the event of worsening symptoms or concerns about side effects, contact your doctor immediately. 3. Utilize new healthy coping skills, anger management skills, and stress management skills learned during your hospitalization. Journal feelings and process them with a support person. Identify stressors or situations that may result in relapse, deterioration or inappropriate behaviors and develop a plan to deal with those issues. 4. If your coping skills are ineffective and you are in crisis, contact your outpatient providers for direction. If unable to reach your providers, please call the [facility] CRISIS LINE AT , go to the [facility] walk-in center at [address] [facility], or go to the closest Emergency Room. 5. Avoid alcohol and un-prescribed drugs. 6. You have been provided with the Mental Health Advance Directives Pamphlet for your review. AFTERCARE APPOINTMENTS: * Please call your insurance company prior to your scheduled appointment to confirm your aftercare providers are covered. Take your insurance information to your appointments. WHO TO CALL AND WHEN: Medical Emergencies: For questions or emergencies related to your hospital stay, please contact the Inpatient Behavioral Health Unit at [phone]. A synthetic filament spinner is on-call 04/03 for the Behavioral Health Unit for emergencies At any time you feel your situation is an emergency, you may also call 911 immediately. Pending Studies at Discharge: No Stand-Alone Forms: [facility], Smoking Cessation Medications and DC Order Prescriptions: New venlafaxine 150 mg Capsule,Extended Release 24hr 150 mg PO QAM Qty: 30 RF: 0 lamotrigine [Lamictal] 25 mg Tablet 25 mg PO QAM Qty: 30 RF: 0 pseudoephedrine HCl [Suphedrine] 30 mg Tablet 30 mg PO Q6H PRN (Reason: Congestion) Qty: 15 RF: 1 hydroxyzine HCl 25 mg Tablet 50 mg PO HSZ PRN (Reason: Sleep) Qty: 30 RF: 0 Continued cetirizine 10 mg Tablet 10 mg PO DAILY RF: 0 topiramate 25 mg tablet 25 mg PO BID RF: 0 rizatriptan 10 mg tablet,disintegrating 10 mg PO Q2H PRN (Reason: Migraine Headache) RF: 0 norethindrone (contraceptive) 0.35 mg Tablet 0.35 mg PO DAILY RF: 0 Discontinued venlafaxine 75 mg Capsule,Extended Release 24hr 75 mg PO QAM RF: 0 Discharge Orders: Discharge Order (Routine); Ordered 06/10/20 Ordered By: Carlo Vasquez Admission Data Admit Date/Time: 06/05/20 16:26 Attending Provider: Fior Salinas Admit Provider: Camilo Mcdowell Primary Care Provider: [facility] Other Interventions: Discharge Summary Assessment (RN) Last Done: 06/10/20 10:00 PSY Interdisciplinary Discharge Planning Last Done: 06/10/20 09:56 C[place] [address] D/C day mgmt > 30 min Patient Type Established History Expanded Problem Focused Exam Expanded Problem Focused Medical Decision Making Moderate Complexity Diagnoses Depression F32.9 Depression Type: unspecified Cluster B personality disorder F60.89 Dysmenorrhea N94.6 Nasal congestion R09.81 Time Spent (min) 45
== END 2020-06-10 10:50 | disposition home or self-care (01) | DRG 881 ==
LOC: ED 11:20 → 3S 16:26